=== PATIENT | female | born 1940 | race Caucasian/White ===

== ENCOUNTER 2016-10-27 10:53 | Inpatient (IN) | payer MEDICARE ==
[~2016-10-27] VITALS: Ht 167.6 cm; Wt 95.3 kg
[2016-10-27] MEDS ORDERED: MULTI VITAMINS1 TAB PO (14:48)
[2016-10-27] MEDS ORDERED: ASPIRIN 32325 MG/TAB PO (14:48)
[2016-10-27] MEDS ORDERED: PLAVIX 75MG TAB75 MG PO (14:49)
[2016-10-27] MEDS ORDERED: CATAPRES 0.1MG0.1 MG PO (14:49)
[2016-10-27] MEDS ORDERED: CARDIZEM CD360 MG PO (14:50)
[2016-10-27] MEDS ORDERED: MOTRIN 400400 MG/TAB PO (14:50)
[2016-10-27] MEDS ORDERED: COZAAR100 MG PO (14:51)
[2016-10-27] MEDS ORDERED: GLUCOPHAGE500 MG/TAB PO (14:52)
[2016-10-27] MEDS ORDERED: LOPRESSOR100 MG PO (14:52)
[2016-10-27] MEDS ORDERED: MIRALAX PA17 GM/Dose PO (14:53)
[2016-10-27] MEDS ORDERED: PHENERGAN25 MG RC (14:53)
[2016-10-27] MEDS ORDERED: K-DUR 10 MEQ T10 MEQ PO (14:54)
[2016-10-27] MEDS ORDERED: SENNA-LAX8.6 MG PO (14:55)
[2016-10-27] MEDS ORDERED: REFRESH TEARS 330 ML OP (14:55)
[2016-10-27] MEDS ORDERED: ULTRAM 50MG TAB50 MG PO (14:57)
[2016-10-27] MEDS ORDERED: ZOCOR 20MG20 MG PO (14:57)
[2016-10-27] MEDS ORDERED: ZITHROMAX 250M250 MG PO (14:58)
[2016-10-27 15:45] VITALS: BP 134/73; PULSE 61; TEMP 98.4
[2016-10-27 15:52] VITALS: BP 134/73; PULSE 61; TEMP 98.4
[2016-10-27 16:52] VITALS: BP 134/73; PULSE 61; TEMP 98.4
[2016-10-28 05:09] VITALS: BP 136/73; PULSE 63; TEMP 96.8
[2016-10-28 16:26] VITALS: BP 164/79; PULSE 74; TEMP 98.4
[2016-10-28 21:30] VITALS: BP 120/62; PULSE 59
[2016-10-29 05:26] VITALS: BP 134/79; PULSE 66; TEMP 97.1
[2016-10-29 06:04] LABS: CALCIUM 9.2 mg/dL (8.4-10.2); CREATININE, serum 0.6 mg/dL (0.52-1.25); MAGNESIUM 1.5 mg/dL (1.6-2.3); POTASSIUM 3.1 mmol/L (3.4-5.0)
[2016-10-29 17:43] VITALS: BP 134/58; PULSE 55; TEMP 98
[2016-10-29 18:06] LABS: PH 6 (5-8); SQUAMOUS EPITHELIAL 0-2 /hpf; URINE APPEARANCE Cloudy; URINE BACTERIA Many /hpf; URINE BILIRUBIN Negative (NEGATIVE); URINE BLOOD 1+ (NEGATIVE); URINE COLOR Yellow; URINE GLUCOSE Negative (NEGATIVE); URINE KETONE Negative (NEGATIVE); URINE UROBILINOGEN Negative (NEGATIVE); URINE WBC >50 /hpf
[2016-10-30 05:40] VITALS: BP 136/82; PULSE 67; TEMP 97.3
[2016-10-30 17:37] VITALS: BP 146/67; PULSE 66; TEMP 98.1
[2016-10-31 06:00] VITALS: BP 124/51; PULSE 58; PULSE 82; TEMP 97.3
[2016-10-31 17:08] VITALS: BP 165/98; PULSE 71; TEMP 98.3
[2016-10-31 19:14] LABS: CALCIUM 9.6 mg/dL (8.4-10.2); CREATININE, serum 0.7 mg/dL (0.52-1.25); POTASSIUM 3.9 mmol/L (3.4-5.0)
[2016-11-01 05:07] VITALS: BP 138/76; PULSE 68; TEMP 98.2
[2016-11-01 17:55] VITALS: BP 168/96; PULSE 74; TEMP 97.8
[2016-11-02 05:08] VITALS: BP 143/83; PULSE 63; TEMP 97.9
[2016-11-02 17:38] VITALS: BP 152/85; PULSE 67; TEMP 97.8
[2016-11-03 04:01] VITALS: BP 137/78; PULSE 112; TEMP 97.9
[2016-11-03 07:28] LABS: CALCIUM 9.2 mg/dL (8.4-10.2); CREATININE, serum 0.65 mg/dL (0.52-1.25); MAGNESIUM 1.8 mg/dL (1.6-2.3); POTASSIUM 3.5 mmol/L (3.4-5.0)
[2016-11-03 16:29] VITALS: BP 125/66; PULSE 53; TEMP 98.7
[2016-11-04 04:15] VITALS: BP 135/78; PULSE 73; TEMP 97.7
[2016-11-05 05:37] VITALS: BP 145/80; PULSE 59; TEMP 97.6
[2016-11-05 16:28] VITALS: BP 132/65; PULSE 60; TEMP 98.5
[2016-11-06 04:41] VITALS: BP 151/56; PULSE 65; TEMP 98.2
[2016-11-06 16:09] VITALS: BP 144/82; PULSE 60; TEMP 97.5
[2016-11-07 04:28] VITALS: BP 133/77; PULSE 62; TEMP 97.8
[2016-11-07 16:14] VITALS: BP 143/90; PULSE 66; TEMP 97.4
[2016-11-08 04:00] VITALS: BP 143/86; PULSE 57; TEMP 98.2
[2016-11-08 17:07] VITALS: BP 136/63; PULSE 79; TEMP 97.5
[2016-11-09 05:48] VITALS: BP 138/85; PULSE 63; TEMP 97.7
[2016-11-09 18:00] VITALS: BP 123/86; PULSE 65; TEMP 98.3
[2016-11-10 04:12] VITALS: BP 144/72; PULSE 87; TEMP 98.5
[2016-11-10 17:02] VITALS: BP 150/79; PULSE 69; TEMP 98
[2016-11-11 06:09] VITALS: BP 132/64; PULSE 61; TEMP 97.6
[2016-11-11 17:48] VITALS: BP 132/64; PULSE 72; TEMP 97.5
[2016-11-12 05:47] VITALS: BP 142/75; PULSE 60; TEMP 98
[2016-11-12 06:37] LABS: CALCIUM 9.9 mg/dL (8.4-10.2); CREATININE, serum 0.73 mg/dL (0.52-1.25); MAGNESIUM 1.9 mg/dL (1.6-2.3); POTASSIUM 4.1 mmol/L (3.4-5.0)
[2016-11-12 16:52] VITALS: BP 149/84; PULSE 62; TEMP 98.2
[2016-11-13 04:42] VITALS: BP 119/70; PULSE 70; TEMP 97.7
[2016-11-13 16:07] VITALS: BP 134/69; PULSE 55; TEMP 97.5
[2016-11-14 04:44] VITALS: BP 133/85; PULSE 65; TEMP 98
[2016-11-14 16:02] VITALS: BP 135/65; PULSE 63; TEMP 98.3
[2016-11-15 03:59] VITALS: BP 137/88; PULSE 69; TEMP 98.6
[2016-11-15 09:00] VITALS: BP 125/56; PULSE 54
[2016-11-15 15:49] VITALS: BP 133/60; PULSE 53; TEMP 97.8
[2016-11-16 05:46] VITALS: BP 133/75; PULSE 64; TEMP 97.7
[2016-11-16 18:09] VITALS: BP 132/75; PULSE 88; TEMP 98.2
[2016-11-17 05:53] VITALS: BP 117/66; PULSE 42; TEMP 97.7
[2016-11-17 07:30] VITALS: BP 140/72; PULSE 67; TEMP 98.3
[2016-11-17 16:18] VITALS: BP 130/60; PULSE 64; TEMP 98.1
[2016-11-17 21:30] VITALS: BP 124/63; PULSE 62; TEMP 99.5
[2016-11-18 04:56] VITALS: BP 131/68; PULSE 56; TEMP 98.6
[2016-11-18 16:00] VITALS: BP 135/72; PULSE 69; TEMP 97
[2016-11-19 06:48] VITALS: BP 145/81; PULSE 64; TEMP 97.9
[2016-11-19 18:36] VITALS: BP 144/72; PULSE 56; TEMP 98
[2016-11-20 06:13] VITALS: BP 134/68; PULSE 55; TEMP 98.2
[2016-11-20] MEDS ORDERED: XARELTO20 MG PO (08:33)
[2016-11-20] MEDS ORDERED: DIFLUCAN200 MG PO (08:33)
[2016-11-20] MEDS ORDERED: TYLENOL 325MG325 MG PO (08:34)
[2016-11-20] MEDS ORDERED: K-TAB20 PO (08:35)
[2016-11-20] MEDS ORDERED: NOVOLOG 100U100 U/M1 SQ (08:36)
[2016-11-20] MEDS ORDERED: NYSTATIN POWDER30 GM TOP (08:36)
[2016-11-20] MEDS ORDERED: MAG-OX 400400 MG/TAB PO (08:36)
[2016-11-20] MEDS ORDERED: ULTRAM 50MG TAB50 MG PO (08:37)
== END 2016-11-20 13:30 | DRG 57 ==
PROVIDERS: Internal Medicine; Internal Medicine Cardiovascular Disease
DX: I69.354 Hemiplegia and hemiparesis following cerebral infarction affecting left non-dominant side (principal); N39.0 Urinary tract infection, site not specified; I69.391 Dysphagia following cerebral infarction; R13.10 Dysphagia, unspecified; I48.91 Unspecified atrial fibrillation; I10 Essential (primary) hypertension; E11.9 Type 2 diabetes mellitus without complications; I25.10 Atherosclerotic heart disease of native coronary artery without angina pectoris; E87.6 Hypokalemia; G89.29 Other chronic pain; M54.9 Dorsalgia, unspecified; B96.20 Unspecified Escherichia coli [E. coli] as the cause of diseases classified elsewhere
CPT/HCPCS: 99223-AI; 99232-AI; 99233-AI; 99239; J0696; J1650

== ENCOUNTER 2017-05-22 06:58 | Outpatient (CLI) | payer MEDICARE, MEDICAID ==
[2017-05-22] VITALS (8 sets, daily range): BP systolic 140–163; BP diastolic 84–106; PULSE 66–86; TEMP 97.4
[~2017-05-22] VITALS: Ht 167.7 cm; Wt 99.0 kg
[~2017-05-22 06:58] MED LIST: ASPIRIN 32325 MG/TAB PO; CARDIZEM CD360 MG PO; CATAPRES 0.1MG0.1 MG PO; COZAAR100 MG PO; DIFLUCAN200 MG PO; GLUCOPHAGE500 MG/TAB PO; K-DUR 10 MEQ T10 MEQ PO; K-TAB20 PO; LOPRESSOR100 MG PO; MAG-OX 400400 MG/TAB PO; MIRALAX PA17 GM/Dose PO; MOTRIN 400400 MG/TAB PO; MULTI VITAMINS1 TAB PO; NOVOLOG 100U100 U/M1 SQ; NYSTATIN POWDER30 GM TOP; PHENERGAN25 MG RC; PLAVIX 75MG TAB75 MG PO; REFRESH TEARS 330 ML OP; SENNA-LAX8.6 MG PO; TYLENOL 325MG325 MG PO; ULTRAM 50MG TAB50 MG PO; XARELTO20 MG PO; ZITHROMAX 250M250 MG PO; ZOCOR 20MG20 MG PO
[2017-05-22 08:18] LABS: POTASSIUM 3.8 mmol/L (3.4-5.0)
[2017-05-22 08:19] LABS: INR 1.9 (0.8-3.0); PROTHROMBIN TIME 22.2 SECONDS (9.7-12.8)
[2017-05-22] MEDS ORDERED: ASPIRIN E.C. 8181 MG PO (08:28)
[2017-05-22] MEDS ORDERED: GENTLE LAXATIVE10 MG RC (08:29)
[2017-05-22] MEDS ORDERED: NEURONTIN100 MG/CAP PO (08:32)
[2017-05-22] MEDS ORDERED: IMODIUM 2MG CAPS2 MG PO (08:48)
[2017-05-22] MEDS ORDERED: K-DUR20 MEQ PO (08:49)
[2017-05-22] MEDS ORDERED: LEXAPRO 10MG10 MG PO (08:51)
[2017-05-22] MEDS ORDERED: MAG-OX 400400 MG/TAB PO (08:52)
[2017-05-22] MEDS ORDERED: MELATONIN1 MG PO (08:52)
[2017-05-22 08:53] LABS: THYROID STIMULATING HORMONE 2.81 uIU/mL (0.465-4.680)
[2017-05-22] MEDS ORDERED: GOOD NEIGH1200 MG/15 PO (08:54)
[2017-05-22] MEDS ORDERED: ULTRAM 50MG TAB50 MG PO (08:58)
[2017-05-22] MEDS ORDERED: TYLENOL 325MG325 MG PO ×2 (08:59→09:00)
[2017-05-22] MEDS ORDERED: VOLTAREN GEL 1%1 TU TP (09:01)
[2017-05-22] MEDS ORDERED: XARELTO20 MG PO (09:02)
== END 2017-05-22 13:35 | disposition home or self-care (01) ==
LOC: COL.RAD 06:58
PROVIDERS: Internal Medicine Interventional Cardiology
DX: I48.1 Persistent atrial fibrillation (principal); Z86.73 Personal history of transient ischemic attack (TIA), and cerebral infarction without residual deficits
CPT/HCPCS: G9654; J0282; J0330; J2704; J7030

== ENCOUNTER 2017-05-22 20:00 | Emergency (ER) | payer MEDICARE, MEDICAID ==
[~2017-05-22] VITALS: Ht 170.2 cm; Wt 84.1 kg
[~2017-05-22 20:00] MED LIST changes: +ASPIRIN E.C. 8181 MG PO; +GENTLE LAXATIVE10 MG RC; +GOOD NEIGH1200 MG/15 PO; +IMODIUM 2MG CAPS2 MG PO; +K-DUR20 MEQ PO; +LEXAPRO 10MG10 MG PO; +MELATONIN1 MG PO; +NEURONTIN100 MG/CAP PO; +VOLTAREN GEL 1%1 TU TP
[2017-05-22 20:13] VITALS: TEMP 96.8
[2017-05-22 20:20] LABS: BASO # 0.1 (0.0-0.2); EOS # 0.2 (0.0-0.7); EOS % 3.3 % (0-4.0); GRAN # 4.2 (1.4-6.5); GRAN % 60.9 % (42.2-75.2); HEMATOCRIT 45.2 % (37.0-47.0); HEMOGLOBIN 14.8 g/dl (12.5-16.0); LYMPH # 1.5 (1.2-3.4); LYMPH % 22.1 % (20.0-51.0); MEAN CELL VOLUME 89 fl (80.0-100.0); MEAN CORPUSCULAR HEMOGLOBIN 29 pg (27.0-31.0); MEAN CORPUSCULAR HGB CONC 33 g/dl (33.0-37.0); MEAN PLATELET VOLUME 9.4 fl (7.4-10.4); MONO # 0.9 (0.1-0.6); MONO % 12.6 % (1.7-9.3); PLATELET COUNT 338 K/mm3 (130-400); REDCELL DISTRIBUTION WIDTH-CV 13.5 % (11.5-14.5)
[2017-05-22 20:27] LABS: ALANINE AMINOTRANSFERASE 29 U/L (9-52); ALKALINE PHOSPHATASE 76 U/L (50-136); ANION GAP 11 mmol/L (7-16); AST,SGOT 35 U/L (15-37); BILIRUBIN,TOTAL 0.6 mg/dL (0.0-1.0); BLOOD UREA NITROGEN 19 mg/dL (7-17); CALCIUM 9.4 mg/dL (8.4-10.2); CARBON DIOXIDE 26 mmol/L (22-30); CHLORIDE 102 mmol/L (98-107); CREATININE, serum 1.04 mg/dL (0.52-1.25); GLUCOSE 139 mg/dL (74-106); POTASSIUM 3.9 mmol/L (3.4-5.0); SODIUM 138 mmol/L (137-145); TOTAL PROTEIN 7.6 gm/dL (6.4-8.2)
[2017-05-22 20:40] LABS: TROPONIN-I < 0.012 ng/mL (0.000-0.034)
[2017-05-22 23:18] VITALS: BP 155/95; PULSE 85
== END 2017-05-22 23:21 | disposition home or self-care (01) ==
LOC: COL.ER 20:00
PROVIDERS: Emergency Medicine
DX: L30.9 Dermatitis, unspecified (principal); R07.89 Other chest pain; E11.9 Type 2 diabetes mellitus without complications; I48.91 Unspecified atrial fibrillation; Z86.73 Personal history of transient ischemic attack (TIA), and cerebral infarction without residual deficits; Z98.890 Other specified postprocedural states; Z79.84 Long term (current) use of oral hypoglycemic drugs; Z79.82 Long term (current) use of aspirin

== ENCOUNTER 2017-08-08 16:56 | Inpatient (IN) | payer MEDICARE, MEDICAID ==
[~2017-08-08] VITALS: Ht 167.6 cm; Wt 102.9 kg
[~2017-08-08 16:56] MED LIST changes: -ALMACONE 360 M360 ML PO; -CEPHALEXIN250 M1 PO; -TYLENOL SU650 MG/SUP RC
[2017-08-08 18:24] LABS: BASO # 0.1 (0.0-0.2); BASO % 0.8 % (0.0-2.0); EOS # 0.1 (0.0-0.7); EOS % 1.7 % (0-4.0); GRAN # 5.7 (1.4-6.5); GRAN % 68.5 % (42.2-75.2); HEMATOCRIT 41.5 % (37.0-47.0); HEMOGLOBIN 13.2 g/dl (12.5-16.0); LYMPH # 1.3 (1.2-3.4); LYMPH % 15.1 % (20.0-51.0); MEAN CELL VOLUME 90 fl (80.0-100.0); MEAN CORPUSCULAR HEMOGLOBIN 29 pg (27.0-31.0); MEAN CORPUSCULAR HGB CONC 32 g/dl (33.0-37.0); MEAN PLATELET VOLUME 9.1 fl (7.4-10.4); MONO # 1.1 (0.1-0.6); MONO % 13.7 % (1.7-9.3); PLATELET COUNT 327 K/mm3 (130-400); RED BLOOD COUNT 4.59 M/mm3 (4.10-5.30); REDCELL DISTRIBUTION WIDTH-CV 13.9 % (11.5-14.5)
[2017-08-08 18:34] LABS: ALBUMIN 3.5 gm/dL (3.5-5.0); BILIRUBIN,TOTAL 0.7 mg/dL (0.0-1.0); CALCIUM 9.2 mg/dL (8.4-10.2); CREATININE, serum 0.88 mg/dL (0.52-1.25); POTASSIUM 4.2 mmol/L (3.4-5.0); TOTAL PROTEIN 7.3 gm/dL (6.4-8.2)
[2017-08-08 21:57] LABS: INR 1.2 (0.8-3.0)
[2017-08-08] MEDS ORDERED: CEPHALEXIN250 M1 PO (21:59)
[2017-08-08 22:00] LABS: PARTIAL THROMBOPLASTIN TIME 36.4 SECONDS (26.0-37.0)
[2017-08-09 01:05] VITALS: BP 140/66; PULSE 82; TEMP 98.6
[2017-08-09] MEDS ORDERED: VOLTAREN GEL 1%1 TU TP (01:44)
[2017-08-09] MEDS ORDERED: TYLENOL SU650 MG/SUP RC (01:46)
[2017-08-09] MEDS ORDERED: ALMACONE 360 M360 ML PO (04:01)
[2017-08-09 04:19] VITALS: BP 150/81; PULSE 74; TEMP 98.3
[2017-08-09 07:05] LABS: BASO # 0.1 (0.0-0.2); EOS # 0.2 (0.0-0.7); EOS % 2.6 % (0-4.0); GRAN # 4.7 (1.4-6.5); GRAN % 68.2 % (42.2-75.2); HEMATOCRIT 37.4 % (37.0-47.0); HEMOGLOBIN 12.1 g/dl (12.5-16.0); LYMPH # 1.1 (1.2-3.4); LYMPH % 15.6 % (20.0-51.0); MEAN CELL VOLUME 91 fl (80.0-100.0); MEAN CORPUSCULAR HEMOGLOBIN 29 pg (27.0-31.0); MEAN CORPUSCULAR HGB CONC 32 g/dl (33.0-37.0); MONO # 0.8 (0.1-0.6); MONO % 12.3 % (1.7-9.3); PLATELET COUNT 342 K/mm3 (130-400); RED BLOOD COUNT 4.11 M/mm3 (4.10-5.30)
[2017-08-09 07:15] LABS: CALCIUM 8.7 mg/dL (8.4-10.2); CREATININE, serum 0.69 mg/dL (0.52-1.25); POTASSIUM 3.4 mmol/L (3.4-5.0)
[2017-08-09 08:14] VITALS: BP 150/80; PULSE 87; TEMP 98.6
[2017-08-09 11:43] VITALS: BP 129/73; PULSE 76; TEMP 97.7
[2017-08-09 16:15] VITALS: BP 130/70; PULSE 66; TEMP 98.3
[2017-08-09 20:48] VITALS: BP 107/69; PULSE 94; TEMP 98.3
[2017-08-10 00:03] VITALS: BP 140/88; PULSE 81; TEMP 98.4
[2017-08-10 03:53] VITALS: BP 137/78; PULSE 74; TEMP 98.1
[2017-08-10 07:38] VITALS: BP 146/87; PULSE 80; TEMP 97.8
[2017-08-10 11:43] VITALS: BP 133/69; PULSE 73; TEMP 97.7
[2017-08-10 15:31] VITALS: BP 132/74; PULSE 68; TEMP 98.7
[2017-08-10 19:41] VITALS: BP 138/95; PULSE 82; TEMP 97.9
[2017-08-11 01:01] VITALS: BP 123/76; PULSE 41; PULSE 66; TEMP 97.5
[2017-08-11 03:47] VITALS: BP 141/75; PULSE 70; TEMP 97.6
[2017-08-11 06:52] LABS: BASO # 0.1 (0.0-0.2); BASO % 0.7 % (0.0-2.0); EOS # 0.3 (0.0-0.7); EOS % 4.2 % (0-4.0); GRAN # 4.4 (1.4-6.5); GRAN % 65.3 % (42.2-75.2); HEMATOCRIT 38.7 % (37.0-47.0); HEMOGLOBIN 12.3 g/dl (12.5-16.0); LYMPH # 1.2 (1.2-3.4); LYMPH % 18.4 % (20.0-51.0); MEAN CELL VOLUME 91 fl (80.0-100.0); MEAN CORPUSCULAR HEMOGLOBIN 29 pg (27.0-31.0); MEAN CORPUSCULAR HGB CONC 32 g/dl (33.0-37.0); MEAN PLATELET VOLUME 9.4 fl (7.4-10.4); MONO # 0.8 (0.1-0.6); MONO % 11.1 % (1.7-9.3); PLATELET COUNT 365 K/mm3 (130-400); RED BLOOD COUNT 4.26 M/mm3 (4.10-5.30); REDCELL DISTRIBUTION WIDTH-CV 13.8 % (11.5-14.5)
[2017-08-11 07:07] LABS: CALCIUM 8.8 mg/dL (8.4-10.2); CREATININE, serum 0.62 mg/dL (0.52-1.25); POTASSIUM 3.1 mmol/L (3.4-5.0)
[2017-08-11 07:39] VITALS: BP 154/89; PULSE 66; TEMP 98
[2017-08-11] MEDS ORDERED: K-TAB20 PO (09:54)
[2017-08-11] MEDS ORDERED: ULTRAM 50MG TAB50 MG PO (09:56)
[2017-08-11 10:21] VITALS: BP 154/89; PULSE 66; TEMP 98
== END 2017-08-11 11:33 | DRG 605 ==
LOC: COL.ER 16:56 → SURG 23:48
PROVIDERS: Emergency Medicine; Internal Medicine; Nurse Practitioner Family
DX: S80.12XA Contusion of left lower leg, initial encounter (principal); I25.10 Atherosclerotic heart disease of native coronary artery without angina pectoris; I10 Essential (primary) hypertension; I48.2 Chronic atrial fibrillation; Z79.01 Long term (current) use of anticoagulants; E11.9 Type 2 diabetes mellitus without complications; I69.320 Aphasia following cerebral infarction; E87.6 Hypokalemia; W21.89XA Striking against or struck by other sports equipment, initial encounter
CPT/HCPCS: 99223-AI; 99233-AI; 99239; G0378; G8978-GP; G8979-GP; J0690; J1815; J2543; J3370; J7030; J7050

== ENCOUNTER → 2017-08-08 | Outpatient (REF) ==
[~2017-08-08] MED LIST changes: +ALMACONE 360 M360 ML PO; +CEPHALEXIN250 M1 PO; +TYLENOL SU650 MG/SUP RC
[2017-08-08 16:01] LABS: CALCIUM 9.3 mg/dL (8.4-10.2); CREATININE, serum 0.88 mg/dL (0.52-1.25); POTASSIUM 4.3 mmol/L (3.4-5.0)
== END ==
LOC: ZCOL.LAB 15:44
PROVIDERS: Nurse Practitioner Family
DX: E11.59 Type 2 diabetes mellitus with other circulatory complications (principal); I48.0 Paroxysmal atrial fibrillation

== ENCOUNTER → 2018-01-04 | Outpatient (CLI) | payer MEDICARE, MEDICAID ==
[~2018-01-04] MED LIST changes: +ALMACONE 360 M360 ML PO; +CEPHALEXIN250 M1 PO; +TYLENOL SU650 MG/SUP RC
== END ==
LOC: COL.RAD 07:52
DX: I63.411 Cerebral infarction due to embolism of right middle cerebral artery (principal); I67.82 Cerebral ischemia; G51.4 Facial myokymia; Z86.73 Personal history of transient ischemic attack (TIA), and cerebral infarction without residual deficits

== ENCOUNTER → 2018-05-14 | Outpatient (CLI) | payer MEDICARE, MEDICAID | LOC: COL.RAD 07:49 | DX: K76.89 Other specified diseases of liver (principal); K86.2 Cyst of pancreas; N83.202 Unspecified ovarian cyst, left side; N83.201 Unspecified ovarian cyst, right side; N28.1 Cyst of kidney, acquired | CPT/HCPCS: Q9967 ==

== ENCOUNTER → 2018-05-28 | Outpatient (CLI) | payer MEDICARE, MEDICAID ==
[2018-05-28 16:55] LABS: CALCIUM 9.1 mg/dL (8.4-10.2); CREATININE, serum 0.81 mg/dL (0.52-1.25); POTASSIUM 4.2 mmol/L (3.4-5.0)
== END ==
LOC: ZCOL.LAB 16:06
PROVIDERS: Internal Medicine
DX: I10 Essential (primary) hypertension (principal)

== ENCOUNTER → 2018-06-23 | Outpatient (CLI) | payer MEDICARE, MEDICAID ==
[2018-06-23 17:37] LABS: BASO % 0.3 % (0.0-2.0); EOS # 0.1 (0.0-0.7); EOS % 0.9 % (0-4.0); GRAN # 8.2 (1.4-6.5); GRAN % 92.4 % (42.2-75.2); HEMATOCRIT 47.8 % (37.0-47.0); HEMOGLOBIN 15.4 g/dl (12.5-16.0); LYMPH # 0.3 (1.2-3.4); LYMPH % 3.3 % (20.0-51.0); MEAN CELL VOLUME 88 fl (80.0-100.0); MEAN CORPUSCULAR HEMOGLOBIN 29 pg (27.0-31.0); MEAN CORPUSCULAR HGB CONC 32 g/dl (33.0-37.0); MEAN PLATELET VOLUME 9.7 fl (7.4-10.4); MONO # 0.3 (0.1-0.6); MONO % 2.9 % (1.7-9.3); PLATELET COUNT 313 K/mm3 (130-400); RED BLOOD COUNT 5.41 M/mm3 (4.10-5.30); REDCELL DISTRIBUTION WIDTH-CV 14.3 % (11.5-14.5)
[2018-06-23 18:21] LABS: ALBUMIN 3.6 gm/dL (3.5-5.0); BILIRUBIN,TOTAL 0.6 mg/dL (0.0-1.0); CALCIUM 8.9 mg/dL (8.4-10.2); CREATININE, serum 0.75 (0.52-1.25); POTASSIUM 4.1 mmol/L (3.4-5.0); TOTAL PROTEIN 6.8 gm/dL (6.4-8.2)
== END ==
LOC: ZCOL.LAB 16:45
PROVIDERS: Internal Medicine
DX: Z01.89 Encounter for other specified special examinations (principal)

== ENCOUNTER → 2019-03-27 | Outpatient (CLI) | payer MEDICARE, MEDICAID ==
[2019-03-27 18:59] LABS: COLLECTION METHOD CLEAN CATCH
[2019-03-27 19:56] LABS: MUCOUS Present /lpf; PH 6 (5-8); SQUAMOUS EPITHELIAL 0-2 /hpf; URINE APPEARANCE Cloudy; URINE BACTERIA Rare /hpf; URINE BILIRUBIN Negative (NEGATIVE); URINE BLOOD 3+ (NEGATIVE); URINE COLOR Yellow; URINE GLUCOSE Negative (NEGATIVE); URINE KETONE Negative (NEGATIVE); URINE LEUKOCYTE ESTERASE 3+ (NEGATIVE); URINE NITRATE Positive (NEGATIVE); URINE PROTEIN(semi-quant) 1+ (NEGATIVE); URINE RBC >50 /hpf; URINE UROBILINOGEN Negative (NEGATIVE); URINE WBC >50 /hpf
== END ==
LOC: ZCOL.LAB 18:04
PROVIDERS: Family Medicine
DX: R30.0 Dysuria (principal); R31.9 Hematuria, unspecified

== ENCOUNTER → 2019-04-04 | Outpatient (CLI) | payer MEDICARE, MEDICAID | LOC: COL.RAD 09:35 | DX: N20.0 Calculus of kidney (principal); N28.1 Cyst of kidney, acquired ==

== ENCOUNTER → 2019-04-06 | Outpatient (CLI) | payer MEDICARE, MEDICAID ==
[2019-04-06 13:03] LABS: COLLECTION METHOD CLEAN CATCH
[2019-04-06 13:24] LABS: BUDDING YEAST Present /hpf; MUCOUS Present /lpf; PH 6 (5-8); SQUAMOUS EPITHELIAL 0-2 /hpf; URINE APPEARANCE Cloudy; URINE BACTERIA Occasional /hpf; URINE BILIRUBIN Negative (NEGATIVE); URINE BLOOD 3+ (NEGATIVE); URINE COLOR Yellow; URINE GLUCOSE Negative (NEGATIVE); URINE KETONE Negative (NEGATIVE); URINE LEUKOCYTE ESTERASE 2+ (NEGATIVE); URINE NITRATE Positive (NEGATIVE); URINE PROTEIN(semi-quant) 2+ (NEGATIVE); URINE RBC >50 /hpf; URINE UROBILINOGEN Negative (NEGATIVE); URINE WBC >50 /hpf
== END ==
LOC: ZCOL.LAB 12:50
PROVIDERS: Internal Medicine
DX: R31.9 Hematuria, unspecified (principal); R35.0 Frequency of micturition

== ENCOUNTER 2019-04-29 08:08 | Day surgery (SDC) | payer MEDICARE, MEDICAID ==
[~2019-04-29] VITALS: Ht 167.6 cm; Wt 107.7 kg
[2019-04-29 09:02] VITALS: BP 141/77; PULSE 70; TEMP 98.1
[2019-04-29 09:06] LABS: CALCIUM 9.3 mg/dL (8.4-10.2); CREATININE, serum 0.75 (0.52-1.25); POTASSIUM 3.9 mmol/L (3.4-5.0)
[2019-04-29] MEDS ORDERED: BYSTOLIC5 MG PO (09:13)
[2019-04-29] MEDS ORDERED: CARDIZEM CD 18180 MG PO (09:15)
[2019-04-29] MEDS ORDERED: LASIX 20MG TABL20 MG PO (09:17)
[2019-04-29] MEDS ORDERED: METAMUCIL3.4 GM/DOS PO (09:18)
[2019-04-29] MEDS ORDERED: ULTRAM 50MG TAB50 MG PO (09:20)
[2019-04-29] MEDS ORDERED: UROCIT-K 1010 MEQ PO (09:22)
[2019-04-29] MEDS ORDERED: SYSTANE 0.4%-0.1 SOL OP (09:24)
[2019-04-29] MEDS ORDERED: ARTIFICIAL TEAR15 M7 OD (09:26)
[2019-04-29 12:03] VITALS: BP 136/82; PULSE 72; TEMP 97.3
--- NOTE | 2019-04-29 12:03 | NUR ---
The patient arrived back to [place] [facility] from the recovery room at this time. The patient appears alert and back to her pre op mentation. The patient reports soreness in her right flank area. Post operative vital signs were started at this timme. The patient's daughter was brought back to be at her bedside. The patient agrees to try some cranberry juice and wheat toast. Will continue to monitor the patient.
[2019-04-29 12:18] VITALS: BP 140/91; PULSE 86
--- NOTE | 2019-04-29 12:18 | NUR ---
The patient appears to be tolerating the food and drink well. Vital signs appear stable. Will continue to monitor the patient.
[2019-04-29 12:40] VITALS: BP 151/100; PULSE 79
--- NOTE | 2019-04-29 12:40 | NUR ---
The patient has finished her toast and appeared to tolerate it well. The patient continues to report increased discomfort in her right flank area and was given a PRN dose of Berry one tab at this time.
--- NOTE | 2019-04-29 13:20 | NUR ---
Discharge instructions were reviewed with the patient and her daughter at this time. The daughter verbalized understanding and have no questions for the nurse at this time. The patient's IV to her left hand was removed and a pressure dressing was applied to the site. The patient was assisted to the bathroom with the use of her wheelchair and she appeared to tolerate the activity well. The patient voided without difficulty and was assisted to get dressed and then back to her wheelchair.
--- NOTE | 2019-04-29 13:25 | NUR ---
The nurse attempted to call report to [facility] where the patient is a resident. No one was able to be reached and a message with a callback number was left.
--- NOTE | 2019-04-29 13:35 | NUR ---
The patient was escorted out via wheelchair to a private vehicle by SHEMAR Overton. The patient's belongings and discharge paperwork were sent with her. The patient's daughter is going to wait with the patient for the transportation vehicle from [facility] to arrive.
== END 2019-04-29 13:35 ==
LOC: SDCO 08:08
PROVIDERS: Nurse Anesthetist, Certified Registered
DX: N20.0 Calculus of kidney (principal); I48.91 Unspecified atrial fibrillation; Z79.01 Long term (current) use of anticoagulants; Z79.899 Other long term (current) drug therapy; Z79.82 Long term (current) use of aspirin; I25.10 Atherosclerotic heart disease of native coronary artery without angina pectoris; I10 Essential (primary) hypertension; I69.321 Dysphasia following cerebral infarction; I69.310 Attention and concentration deficit following cerebral infarction; I69.391 Dysphagia following cerebral infarction; I69.320 Aphasia following cerebral infarction; I69.398 Other sequelae of cerebral infarction; E11.9 Type 2 diabetes mellitus without complications; Z79.84 Long term (current) use of oral hypoglycemic drugs; Z87.891 Personal history of nicotine dependence; E78.5 Hyperlipidemia, unspecified; E87.6 Hypokalemia
CPT/HCPCS: C1769; C2617; J0690; J2405; J2704; J3010; J7030

== ENCOUNTER → 2019-07-20 | Outpatient (CLI) | payer MEDICARE, MEDICAID ==
[~2019-07-20] MED LIST changes: +ARTIFICIAL TEAR15 M7 OD; +BYSTOLIC5 MG PO; +CARDIZEM CD 18180 MG PO; +LASIX 20MG TABL20 MG PO; +METAMUCIL3.4 GM/DOS PO; +SYSTANE 0.4%-0.1 SOL OP; +UROCIT-K 1010 MEQ PO
[2019-07-20 09:11] LABS: ALBUMIN 3.7 gm/dL (3.5-5.0); BILIRUBIN,TOTAL 0.5 mg/dL (0.0-1.0); CALCIUM 9.5 mg/dL (8.4-10.2); CREATININE, serum 0.59 (0.52-1.25); POTASSIUM 3.9 mmol/L (3.4-5.0); TOTAL PROTEIN 7.1 gm/dL (6.4-8.2)
[2019-07-20 09:16] LABS: BASO # 0.1 (0.0-0.2); BASO % 1.1 % (0.0-2.0); EOS # 0.3 (0.0-0.7); EOS % 4.3 % (0-4.0); GRAN # 4.6 (1.4-6.5); GRAN % 65.9 % (42.2-75.2); HEMATOCRIT 43.8 % (37.0-47.0); HEMOGLOBIN 13.8 g/dl (12.5-16.0); LYMPH # 1.4 (1.2-3.4); LYMPH % 19.6 % (20.0-51.0); MEAN CELL VOLUME 87 fl (80.0-100.0); MEAN CORPUSCULAR HEMOGLOBIN 27 pg (27.0-31.0); MEAN CORPUSCULAR HGB CONC 32 g/dl (33.0-37.0); MEAN PLATELET VOLUME 9.9 fl (7.4-10.4); MONO # 0.6 (0.1-0.6); MONO % 8.8 % (1.7-9.3); PLATELET COUNT 353 K/mm3 (130-400); RED BLOOD COUNT 5.03 M/mm3 (4.10-5.30); REDCELL DISTRIBUTION WIDTH-CV 14.5 % (11.5-14.5)
== END ==
LOC: ZCOL.LAB 08:52
PROVIDERS: Internal Medicine
DX: K64.1 Second degree hemorrhoids (principal); E11.59 Type 2 diabetes mellitus with other circulatory complications

== ENCOUNTER → 2019-09-10 | Outpatient (CLI) | payer MEDICARE, MEDICAID ==
[2019-09-10 13:10] LABS: COLLECTION METHOD CLEAN CATCH
[2019-09-10 13:21] LABS: MUCOUS Present /lpf; PH 5 (5-8); URINE APPEARANCE Cloudy; URINE BACTERIA Many /hpf; URINE BILIRUBIN Negative (NEGATIVE); URINE BLOOD 1+ (NEGATIVE); URINE CALCIUM OXALATE CRYSTAL Present /hpf; URINE COLOR Yellow; URINE GLUCOSE Negative (NEGATIVE); URINE KETONE Negative (NEGATIVE); URINE LEUKOCYTE ESTERASE 2+ (NEGATIVE); URINE NITRATE Positive (NEGATIVE); URINE PROTEIN(semi-quant) 1+ (NEGATIVE); URINE UROBILINOGEN Negative (NEGATIVE)
== END ==
LOC: ZCOL.LAB 10:11
PROVIDERS: Nurse Practitioner Family
DX: N39.0 Urinary tract infection, site not specified (principal)

== ENCOUNTER 2020-06-01 06:48 | Day surgery (SDC) | payer MEDICARE, MEDICAID ==
[~2020-06-01] VITALS: Ht 167.6 cm; Wt 103.9 kg
[2020-06-01] VITALS (7 sets, daily range): BP systolic 117–140; BP diastolic 68–89; PULSE 85–91; TEMP 97.5–98.5
[2020-06-01] MEDS ORDERED: CLARITIN 1010 MG/TAB PO (08:11)
[2020-06-01] MEDS ORDERED: BENADRYL25 M2 PO (08:11)
[2020-06-01] MEDS ORDERED: IMODIUM 2MG CAPS2 MG PO (08:14)
[2020-06-01] MEDS ORDERED: HCTZ 25MG TAB25 MG PO (08:14)
[2020-06-01] MEDS ORDERED: ALMACONE 360 M360 ML PO (08:17)
[2020-06-01] MEDS ORDERED: PROBIOTIC FORMU1 CAP PO (08:18)
[2020-06-01] MEDS ORDERED: FLOMAX 0.40.4 MG/CAP PO (08:19)
[2020-06-01] MEDS ORDERED: NORCO 325 MG-51 TAB PO (08:48)
--- NOTE | 2020-06-01 10:05 | NUR ---
Patient arrives to [facility] [facility] via cart, accompanied by SERVOMECHANISM DESIGNER Chanel. She is drowsy, but awake and appropriately speaks with daughter/staff. She denies any pain or nausea. IVF to TKO. Monitoring is applied - VSS and WNL on 2 L nasal cannula. Lights are dimmed for comfort. Patient is resting comfortably.
--- NOTE | 2020-06-01 10:15 | NUR ---
Patient continues to rest comfortably. Oxygen is titrated to off, on room air SpO2 measures 94%. Will continue to monitor.
--- NOTE | 2020-06-01 10:30 | NUR ---
VSS on room air. BP reading is identical to previous reading of 124/70. Patient is sitting up in bed. Nasal cannula is removed. Patient is drinking water without difficulty, tolerating PO well. She is able to do cough/deep breathing when asked.
--- NOTE | 2020-06-01 10:45 | NUR ---
Patient is more awake. She is sitting up in bed. She requests and receives coffee and applesauce. Her daughter is assisting her.
--- NOTE | 2020-06-01 11:45 | NUR ---
Patient states she needs to void. When going to assist patient to the restroom, it is noticed that she has already voided and the sheets of her bed are saturated. She states that she no longer needs to go. Staff assists her to get cleaned up and change to her clothing.
--- NOTE | 2020-06-01 11:56 | NUR ---
Patient has met discharge criteria. Discharge instructions are discussed. She and her daughter deny questions and verbalize understanding. PIV is removed with catheter intact and hemostasis achieved. Report is called to SHEMAR Troncoso at the alf. She denies any questions and arranges transportation to pick the patient up at 1230.
--- NOTE | 2020-06-01 12:14 | NUR ---
[facility] is going to call the office to arrange a follow-up appointment for stent removal on Thursday.
--- NOTE | 2020-06-01 12:24 | NUR ---
Patient is escorted to the exit via wheelchair by staff. She is discharged to the correction to the care of the correction transportation at 1224.
== END 2020-06-01 12:24 | disposition home or self-care (01) ==
LOC: SDCO 06:48
DX: N20.0 Calculus of kidney (principal); N39.0 Urinary tract infection, site not specified; I48.91 Unspecified atrial fibrillation; I10 Essential (primary) hypertension; E11.9 Type 2 diabetes mellitus without complications; E78.5 Hyperlipidemia, unspecified; E87.6 Hypokalemia; Z86.73 Personal history of transient ischemic attack (TIA), and cerebral infarction without residual deficits; Z96.653 Presence of artificial knee joint, bilateral; Z79.82 Long term (current) use of aspirin; Z79.899 Other long term (current) drug therapy; Z79.84 Long term (current) use of oral hypoglycemic drugs
CPT/HCPCS: C1769; C2617; J0690; J2405; J2704; J3010; J7120; Q9967

== ENCOUNTER → 2021-08-16 | Outpatient (CLI) | payer MEDICARE, MEDICAID ==
[~2021-08-16] MED LIST changes: +BENADRYL25 M2 PO; +CLARITIN 1010 MG/TAB PO; +FLOMAX 0.40.4 MG/CAP PO; +HCTZ 25MG TAB25 MG PO; +NORCO 325 MG-51 TAB PO; +PROBIOTIC FORMU1 CAP PO
== END ==
LOC: ZCOL.LAB 10:44
DX: J02.9 Acute pharyngitis, unspecified (principal); R05.9 Cough, unspecified; Z20.822 Contact with and (suspected) exposure to COVID-19

== ENCOUNTER 2021-10-19 02:33 | Emergency (ER) | payer MEDICARE, MEDICAID ==
[~2021-10-19] VITALS: Ht 167.6 cm; Wt 81.8 kg
[~2021-10-19 02:33] MED LIST changes: -PROBIOTIC FORMU1 CAP PO; +PROBIOTIC-MAJOR PO
[2021-10-19 02:45] VITALS: TEMP 98.5
[2021-10-19 03:09] LABS: BASO # 0.1 K/mm3 (0.0-0.2); BASO % 1.5 % (0.0-2.0); EOS # 0.3 K/mm3 (0.0-0.7); EOS % 4.9 % (0.0-4.0); GRAN # 3.2 K/mm3 (1.4-6.5); GRAN % 55.4 % (42.2-75.2); HEMATOCRIT 38.2 % (37.0-47.0); HEMOGLOBIN 11.9 g/dl (12.5-16.0); LYMPH # 1.5 K/mm3 (1.2-3.4); LYMPH % 25.9 % (20.0-51.0); MEAN CELL VOLUME 77 fl (80.0-100.0); MEAN CORPUSCULAR HEMOGLOBIN 24 pg (27-31); MEAN CORPUSCULAR HGB CONC 31 g/dl (33.0-37.0); MEAN PLATELET VOLUME 8.9 fl (7.4-10.4); MONO # 0.7 K/mm3 (0.1-0.6); MONO % 12.1 % (1.7-9.3); PLATELET COUNT 372 K/mm3 (130-400); RED BLOOD COUNT 4.95 M/mm3 (4.10-5.30); REDCELL DISTRIBUTION WIDTH-CV 17.2 % (11.5-14.5)
[2021-10-19 03:18] LABS: INR 2.3 (0.8-3.0); PROTHROMBIN TIME 26.4 SECONDS (9.7-12.8)
[2021-10-19 03:26] LABS: CALCIUM 9.4 mg/dL (8.4-10.2); CREATININE, serum 1.19 mg/dL (0.57-1.11); POTASSIUM 3.5 mmol/L (3.5-4.5)
[2021-10-19] MEDS ORDERED: DULCOLAX STOOL100 MG PO (03:39)
[2021-10-19 04:08] VITALS: BP 129/88; PULSE 73
== END 2021-10-19 04:08 | disposition home or self-care (01) ==
LOC: COL.ER 02:33
PROVIDERS: Emergency Medicine
DX: K64.4 Residual hemorrhoidal skin tags (principal); I48.91 Unspecified atrial fibrillation; R79.0 Abnormal level of blood mineral; Z79.01 Long term (current) use of anticoagulants

== ENCOUNTER 2021-10-21 13:25 | Inpatient (IN) | payer MEDICARE, MEDICAID ==
[~2021-10-21] VITALS: Ht 162.6 cm; Wt 97.2 kg
[~2021-10-21 13:25] MED LIST changes: -AMARYL1 MG PO; -AMOXICILLIN 8751 TAB PO; -B-121000 MCG PO; -METAMUCIL0.52 G1; -NATURAL IRON65 MG PO; -PROTONIX 40MG T40 MG PO; -REFRESH CELLUVI1 SOL OP; -REFRESH OPTIVE10 M2 OP
[2021-10-21 13:50] LABS: HEMOGLOBIN 11.1 g/dl (12.5-16.0); MEAN CELL VOLUME 77 fl (80.0-100.0); MEAN CORPUSCULAR HEMOGLOBIN 24 pg (27-31); MEAN CORPUSCULAR HGB CONC 32 g/dl (33.0-37.0); MEAN PLATELET VOLUME 9.3 fl (7.4-10.4); PLATELET COUNT 436 K/mm3 (130-400); RED BLOOD COUNT 4.59 M/mm3 (4.10-5.30)
[2021-10-21 13:51] LABS: HEMATOCRIT 35.2 % (37.0-47.0)
[2021-10-21 14:03] LABS: INR 1.5 (0.8-3.0); PROTHROMBIN TIME 17.7 SECONDS (9.7-12.8)
[2021-10-21 14:08] LABS: ALANINE AMINOTRANSFERASE 12 U/L (0-55); ALBUMIN 3.1 gm/dL (3.4-4.8); ALKALINE PHOSPHATASE 49 U/L (40-150); ANION GAP 13 mmol/L (7-16); AST,SGOT 12 U/L (5-34); BILIRUBIN,TOTAL 0.4 mg/dL (0.2-1.2); BLOOD UREA NITROGEN 46 mg/dL (10-20); CALCIUM 9.3 mg/dL (8.4-10.2); CARBON DIOXIDE 26 mmol/L (23-31); CHLORIDE 103 mmol/L (98-107); CREATININE, serum 1.17 mg/dL (0.57-1.11); GLUCOSE 215 mg/dL (70-99); LIPASE 20 U/L (8-78); POTASSIUM 3.7 mmol/L (3.5-4.5); SODIUM 142 mmol/L (136-145); TOTAL PROTEIN 7.1 gm/dL (6.2-8.1)
[2021-10-21 14:22] LABS: TROPONIN-I < 0.010 ng/mL (0.00-0.033)
[2021-10-21] MEDS ORDERED: B-121000 MCG PO (16:50)
[2021-10-21] MEDS ORDERED: AMARYL1 MG PO (16:50)
[2021-10-21] MEDS ORDERED: ULTRAM 50MG TAB50 MG PO (16:51)
[2021-10-21] MEDS ORDERED: TYLENOL 325MG325 MG PO (16:52)
[2021-10-21 16:53] VITALS: BP 114/79; PULSE 94; TEMP 98.9
[2021-10-21] MEDS ORDERED: METAMUCIL0.52 G1 (18:19)
[2021-10-21 18:23] VITALS: BP 105/87; PULSE 129; TEMP 98.5
[2021-10-21 18:24] LABS: HEMATOCRIT 31.9 % (37.0-47.0); HEMOGLOBIN 9.9 g/dl (12.5-16.0)
[2021-10-21] MEDS ORDERED: VOLTAREN GEL 1%1 TU TP (18:27)
[2021-10-21] MEDS ORDERED: REFRESH CELLUVI1 SOL OP (18:28)
[2021-10-21 19:00] VITALS: BP 126/70; PULSE 102
--- NOTE | 2021-10-21 21:29 | NUR ---
PT IN BED. HAS IVF AND CARDIZEM GTT INFUSING TO RT WRIST IV SITE, NO REDNESS OR SWELLING. TAKES HS MEDS CRUSHED IN APPLESAUCE PER HER REQUEST. PT HAS PUREWICK IN PLACE URINE YELLOW. IS ALERT, ORIENTED X2. TELEMETRY SHOWS AFIB. SCDS ON.
[2021-10-21 23:53] VITALS: BP 145/63; PULSE 103; PULSE 84; TEMP 98.2
[2021-10-22] VITALS (10 sets, daily range): BP systolic 106–142; BP diastolic 28–90; PULSE 95–144; TEMP 97.7–98.9
[2021-10-22 00:58] LABS: HEMATOCRIT 26.8 % (37.0-47.0); HEMOGLOBIN 8.4 g/dl (12.5-16.0)
--- NOTE | 2021-10-22 04:57 | NUR ---
PT HAS BEEN NPO SINCE MIDNIGHT. IVF AND CARDIZEM GTT CONTINUE.
[2021-10-22 06:41] LABS: BASO # 0.1 K/mm3 (0.0-0.2); EOS # 0.1 K/mm3 (0.0-0.7); EOS % 0.9 % (0.0-4.0); GRAN # 5.7 K/mm3 (1.4-6.5); GRAN % 61.1 % (42.2-75.2); LYMPH # 2.4 K/mm3 (1.2-3.4); LYMPH % 25.4 % (20.0-51.0); MEAN CELL VOLUME 78 fl (80.0-100.0); MEAN CORPUSCULAR HGB CONC 31 g/dl (33.0-37.0); MONO % 10.3 % (1.7-9.3); RED BLOOD COUNT 3.54 M/mm3 (4.10-5.30); REDCELL DISTRIBUTION WIDTH-CV 17.1 % (11.5-14.5)
[2021-10-22 06:47] LABS: HEMATOCRIT 27.7 % (37.0-47.0); HEMOGLOBIN 8.6 g/dl (12.5-16.0); MEAN CORPUSCULAR HEMOGLOBIN 24 pg (27-31)
[2021-10-22 06:49] LABS: PLATELET COUNT 336 K/mm3 (130-400)
[2021-10-22 06:54] LABS: CALCIUM 8.5 mg/dL (8.4-10.2); CREATININE, serum 1.02 mg/dL (0.57-1.11); MAGNESIUM 2.1 mg/dL (1.6-2.6); POTASSIUM 3.4 mmol/L (3.5-4.5)
--- NOTE | 2021-10-22 09:50 | NUR ---
Initial visit attempt; Patient resting, Cricket Coach introduced herself to Mary Ann's daughter and left a card for Mary Ann offering God's blessings and information regarding the availability of Spiritual Care at [facility].
[2021-10-22] MEDS ORDERED: REFRESH OPTIVE10 M2 OP (11:26)
--- NOTE | 2021-10-22 11:43 | NUR ---
harness worker met with patient to complete intake and discuss discharge plan. Patient resides at [facility]. She reports that she receives help with her ADL's from the care staff and she utilizes a walker to assist with ambulation. Patient does not utilize oxygen at home. PCP is Dr. Guerrero Shaikh and the skilled nursing manages her medications. Patient does have a DPOA-HC established listing her two daughters Inessa ([phone]) and Nancy ([phone]). SW requested for a PT/OT consult on the patient to determine if she is needing to return to the [facility] or if she can going back to her LTC apartment. Discharge plan: [facility] LTC vs. SNF
[2021-10-22] MEDS ORDERED: VOLTAREN GEL 1%1 TU TP (12:00)
--- NOTE | 2021-10-22 13:00 | NUR ---
PATIENT ALERT TO SELF. PATIENT DENIES PAIN, DOESN'T APPEAR IN PAIN. ASSESSMENT PERFORMED. AM MEDS ADMINISTERED. PATIENT HAS NS RUNNING AT 100/HOUR AND CARDIZEM DRIP AT 5ML/HOUR. PUREWICK IN PLACE TO LIS. PATIENT NPO FOR EGD. CALL LIGHT WITHIN REACH.
--- NOTE | 2021-10-22 21:15 | NUR ---
Pt. sitting up in bed. Pt. is alert and confused. Shift assessment complete. IV to rt. hand patent, IV fluids infusing per orders. Pt. has some excoriation to groin and bottom, New order for powder. Pt. denies further needs, call light within reach.
[2021-10-23] VITALS (7 sets, daily range): BP systolic 109–126; BP diastolic 51–74; PULSE 72–118; TEMP 97.8–98.7
[2021-10-23 06:24] LABS: BASO # 0.1 K/mm3 (0.0-0.2); BASO % 0.7 % (0.0-2.0); EOS # 0.3 K/mm3 (0.0-0.7); EOS % 3.5 % (0.0-4.0); GRAN # 5.9 K/mm3 (1.4-6.5); GRAN % 71.7 % (42.2-75.2); LYMPH # 1.4 K/mm3 (1.2-3.4); MEAN CELL VOLUME 82 fl (80.0-100.0); MEAN CORPUSCULAR HGB CONC 30 g/dl (33.0-37.0); MEAN PLATELET VOLUME 9.5 fl (7.4-10.4); MONO # 0.5 K/mm3 (0.1-0.6); MONO % 6.6 % (1.7-9.3); PLATELET COUNT 296 K/mm3 (130-400); RED BLOOD COUNT 3.11 M/mm3 (4.10-5.30); REDCELL DISTRIBUTION WIDTH-CV 17.7 % (11.5-14.5)
[2021-10-23 06:28] LABS: HEMATOCRIT 25.5 % (37.0-47.0); HEMOGLOBIN 7.6 g/dl (12.5-16.0); MEAN CORPUSCULAR HEMOGLOBIN 24 pg (27-31)
[2021-10-23 06:49] LABS: CALCIUM 8.3 mg/dL (8.4-10.2); CREATININE, serum 0.79 mg/dL (0.57-1.11); POTASSIUM 3.3 mmol/L (3.5-4.5)
--- NOTE | 2021-10-23 10:13 | NUR ---
Patient thanked for following up after leaving a card yesterday. Polishing Machine Operator Helper offered Mary Ann Arce's blessings.
--- NOTE | 2021-10-23 19:30 | NUR ---
PATIENT IN BED ON ROOM ENTRY. ALERT BUT CONFUSED DURING CONVERSATION. HS MEDS GIVEN ONE AT A TIME WITH WATER. DENIES PAIN. DAUGHTER AT BEDSIDE. CALL LIGHT IN REACH.
[2021-10-24] VITALS (7 sets, daily range): BP systolic 119–147; BP diastolic 59–78; PULSE 81–106; TEMP 98.2–100.7
[2021-10-24 06:33] LABS: BASO # 0.1 K/mm3 (0.0-0.2); BASO % 0.6 % (0.0-2.0); EOS # 0.3 K/mm3 (0.0-0.7); EOS % 3.4 % (0.0-4.0); GRAN # 5.4 K/mm3 (1.4-6.5); GRAN % 69.1 % (42.2-75.2); LYMPH # 1.3 K/mm3 (1.2-3.4); LYMPH % 17.3 % (20.0-51.0); MEAN CELL VOLUME 80 fl (80.0-100.0); MEAN CORPUSCULAR HGB CONC 31 g/dl (33.0-37.0); MEAN PLATELET VOLUME 9.8 fl (7.4-10.4); MONO # 0.7 K/mm3 (0.1-0.6); MONO % 9.3 % (1.7-9.3); PLATELET COUNT 290 K/mm3 (130-400); RED BLOOD COUNT 2.79 M/mm3 (4.10-5.30); REDCELL DISTRIBUTION WIDTH-CV 17.3 % (11.5-14.5)
[2021-10-24 06:45] LABS: HEMATOCRIT 22.4 % (37.0-47.0); HEMOGLOBIN 6.9 g/dl (12.5-16.0); MEAN CORPUSCULAR HEMOGLOBIN 25 pg (27-31)
[2021-10-24 06:54] LABS: CALCIUM 8.3 mg/dL (8.4-10.2); CREATININE, serum 0.78 mg/dL (0.57-1.11); MAGNESIUM 1.9 mg/dL (1.6-2.6); POTASSIUM 3.5 mmol/L (3.5-4.5)
--- NOTE | 2021-10-24 08:00 | NUR ---
Pt lying down in bed. Shift assessment completed. Pt was incontinent and care was provided. Sheets and external catheter was changed. Pt is alert but confused. Stated her right hand is aching and radiating to her arm. Right forearm INT CDI, no redness or edema. Left hand electrocardiograph repairer was weaker than right hand. 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 Fall precautions remain in place. Call light within reach.
--- NOTE | 2021-10-24 14:33 | NUR ---
Nut Steamer faxed clinical updates to [facility].
[2021-10-24 14:36] LABS: HEMATOCRIT 23.1 % (37.0-47.0); HEMOGLOBIN 7.2 g/dl (12.5-16.0)
--- NOTE | 2021-10-24 17:25 | NUR ---
Pt resting in bed. Denies any concerns or needs. VSS. Right antecubital INT CDI, no redness or edema. Pt remains in clear liquid diet, and should start NPO at midnight per doctor orders for GI procedure. Fall precautions remain in place. Call light within reach.
--- NOTE | 2021-10-24 19:30 | NUR ---
RECEIVED CHANGE OF SHIFT REPORT FROM DAY SHIFT RN. FAMILY AT BEDSIDE, PATIENT FINISHING UP ON BOWEL PREP FOR COLONOSCOPY SCHEDULED FOR TOMORROW. INT IN PLACE TO RAC. PURE WICK IN PLACE/DRAINING URINE.
[2021-10-25] VITALS (18 sets, daily range): BP systolic 117–164; BP diastolic 60–93; PULSE 92–128; TEMP 97.9–101.4
--- NOTE | 2021-10-25 00:27 | NUR ---
PATIENT ON AND OFF BEDPAN MULTIPLE TIMES SO FAR THIS SHIFT WITH NO STOOL PASSED. PURE WICK IN PLACE/DRAINING URINE. TYLENOL GIVEN FOR TEMP, SEE MAR. MADE NPO AFTER MN PER D.O.
[2021-10-25 07:00] LABS: BASO % 0.5 % (0.0-2.0); EOS # 0.1 K/mm3 (0.0-0.7); EOS % 0.6 % (0.0-4.0); GRAN % 72.2 % (42.2-75.2); LYMPH # 1.1 K/mm3 (1.2-3.4); LYMPH % 12.9 % (20.0-51.0); MEAN CELL VOLUME 81 fl (80.0-100.0); MEAN CORPUSCULAR HGB CONC 31 g/dl (33.0-37.0); MEAN PLATELET VOLUME 10.1 fl (7.4-10.4); MONO # 1.1 K/mm3 (0.1-0.6); MONO % 13.3 % (1.7-9.3); PLATELET COUNT 284 K/mm3 (130-400); RED BLOOD COUNT 2.81 M/mm3 (4.10-5.30); REDCELL DISTRIBUTION WIDTH-CV 17.6 % (11.5-14.5)
[2021-10-25 07:01] LABS: HEMATOCRIT 22.8 % (37.0-47.0); MEAN CORPUSCULAR HEMOGLOBIN 25 pg (27-31)
[2021-10-25 07:20] LABS: CALCIUM 8.4 mg/dL (8.4-10.2); CREATININE, serum 0.76 mg/dL (0.57-1.11); POTASSIUM 3.5 mmol/L (3.5-4.5)
--- NOTE | 2021-10-25 09:10 | NUR ---
PT A&OX2 RESTING IN BED WITH DAUGHTER AT BEDSIDE. DAUGHTER SIGNED CONSENT FOR COLONOSCOPY. AM MEDS GIVEN AND ASSESSMENT COMPLETED. SCDS TO BLE. VS STABLE AND TELE IN PLACE. PUREWICK TO SUCTION WITH TEA COLORED URINE. PT DENIES PAIN. 02 NC AT 2L. NO OTHER NEEDS AT THIS TIME. CALL LIGHT WITHIN REACH.
[2021-10-25] MEDS ORDERED: PROTONIX 40MG T40 MG PO (09:11)
--- NOTE | 2021-10-25 09:47 | NUR ---
IN W PT. ORDERED A UNIT OF BLOOD DUE TO LOW HBG AND O2 LEVELS. TITRATED 02 TO 1L TO SEE HOW PT DOES.
--- NOTE | 2021-10-25 12:03 | NUR ---
BLOOD TRANSFUSION STARTED
--- NOTE | 2021-10-25 12:28 | NUR ---
PT TOLERATING TRANSFUSION AND IT WAS INCREASED.
--- NOTE | 2021-10-25 13:13 | NUR ---
TATYANA collaborated with PT/OT and [facility]. Per Caroline at [facility], the patient was able to ambulate with a walker and contact guard assist. She did need help with all of her OT needs due to weakness in her hands. After conversations with our team and the patient's living facility, it was decided that the recommendation be for the patient to return back skilled. Caroline with [facility] notified and clinical updates faxed.
--- NOTE | 2021-10-25 19:05 | NUR ---
PATIENT RESTING IN BED WITH DAUGHTER AT BEDSIDE. DAUGHTER EXPRESSES CONCERN THAT PATIENT CONTINUES TO COMPLAIN OF R WRIST PAIN AND THAT THERE IS SLIGHTLY MORE SWELLING TO R HAND/WRIST.
--- NOTE | 2021-10-25 19:13 | NUR ---
RECEIVED CHANGE OF SHIFT REPORT FROM DAY SHIFT RN.
[2021-10-25 19:15] LABS: HEMATOCRIT 27.4 % (37.0-47.0); HEMOGLOBIN 8.5 g/dl (12.5-16.0)
--- NOTE | 2021-10-25 20:50 | NUR ---
INFORMED PROVIDER OF TEMP, PATIENT CONTINUED C/O R WRIST PAIN AND DAUGHTER'S VOICED CONCERN THAT SWELLING TO R WRIST AREA HAS INCREASED. RUE HOT TO TOUCH WITH NO REDNESS OBSERVED, NO INDURATION OBSERVED. ORDERS ENTERED BY PROVIDER, DAUGHTER INFORMED OF PROVIDER'S REC/ORDERS OF ICE TO AREA OF COMPLAINT AND KEEPING RUE ELEVATED AND GET UA PER ST CATH TO SEND TO LAB.
[2021-10-25 21:04] LABS: BASO % 0.2 % (0.0-2.0); EOS % 0.2 % (0.0-4.0); GRAN # 7.8 K/mm3 (1.4-6.5); GRAN % 78.8 % (42.2-75.2); LYMPH # 0.8 K/mm3 (1.2-3.4); MEAN CELL VOLUME 81 fl (80.0-100.0); MEAN CORPUSCULAR HGB CONC 31 g/dl (33.0-37.0); MEAN PLATELET VOLUME 9.7 fl (7.4-10.4); MONO # 1.2 K/mm3 (0.1-0.6); MONO % 12.3 % (1.7-9.3); PLATELET COUNT 292 K/mm3 (130-400); RED BLOOD COUNT 3.39 M/mm3 (4.10-5.30); REDCELL DISTRIBUTION WIDTH-CV 17.5 % (11.5-14.5)
[2021-10-25 21:08] LABS: HEMATOCRIT 27.3 % (37.0-47.0); HEMOGLOBIN 8.4 g/dl (12.5-16.0); MEAN CORPUSCULAR HEMOGLOBIN 25 pg (27-31)
[2021-10-25 23:07] LABS: COLLECTION METHOD CLEAN CATCH
[2021-10-25 23:31] LABS: MUCOUS Present (NOT PRESENT); PH 5 (5-8); SQUAMOUS EPITHELIAL 0-2 /hpf (0-10); URINE APPEARANCE Cloudy (CLEAR/HAZY); URINE BACTERIA Moderate /hpf (NONE SEEN); URINE BLOOD Negative (NEGATIVE); URINE COLOR Amber (YELLOW); URINE GLUCOSE 3+ (NEGATIVE); URINE KETONE Negative (NEGATIVE); URINE NITRATE Negative (NEGATIVE); URINE PROTEIN(semi-quant) 2+ (NEGATIVE); URINE UROBILINOGEN Negative (NEGATIVE)
[2021-10-26 03:53] VITALS: BP 145/63; PULSE 112; TEMP 100.6
[2021-10-26 07:13] VITALS: BP 139/75; PULSE 109; TEMP 98.9
--- NOTE | 2021-10-26 07:42 | NUR ---
CHANGE OF SHIFT REPORT GIVEN TO DAY SHIFT RNRACHAEL.
--- NOTE | 2021-10-26 09:30 | NUR ---
Pt doing okay this morning. Breakfast should be arriving soon. Pts daughter is at bedside. Pt has less complaints of her right wrist hurting, but blacking wheel tender. Repositioning pt every 2 hours, heels floated and placed pillow at foot of bed to help with foot drop. Pt using purewick for output
--- NOTE | 2021-10-26 11:08 | NUR ---
Ilia Alvarenga of [facility] contacted this Network Field Engineer with inquiry re: patient status and readiness to return to their SNF placement. Network Field Engineer contacted patient RN Giulia, who informs patient does not plan to discharge today, but possibly tomorrow. Clinical updates faxed to [facility] and Ilia armenta.
[2021-10-26 11:54] VITALS: BP 140/76; PULSE 110; TEMP 100
--- NOTE | 2021-10-26 13:00 | NUR ---
Pt did get bed bath this morning. She is also tolerated AHA diet. Daughter fed her breafkast and pt did have coughing episode with eggs. Continuing to turn pt
[2021-10-26 16:19] VITALS: BP 135/71; PULSE 102; TEMP 99.6
--- NOTE | 2021-10-26 18:11 | NUR ---
Pt slept some this afternoon. Still using purewick, minimal complaints. Eating okay
[2021-10-26 19:13] VITALS: BP 143/77; PULSE 100; TEMP 98.3
--- NOTE | 2021-10-26 20:00 | NUR ---
PIV TO RA NOTED TO BE INFILTRATED. IVF STOPPED, IV D/CD WITH CATHETER TIP INTACT. WILL ASSESS FOR NEW PIV. PT REPORTS NO NEEDS. WILL CONTINUE TO MONITOR.
[2021-10-27] VITALS (7 sets, daily range): BP systolic 123–146; BP diastolic 51–90; PULSE 92–113; TEMP 98–99.4
[2021-10-27 07:51] LABS: BASO # 0.1 K/mm3 (0.0-0.2); BASO % 0.7 % (0.0-2.0); EOS # 0.3 K/mm3 (0.0-0.7); GRAN # 6.3 K/mm3 (1.4-6.5); GRAN % 76.4 % (42.2-75.2); LYMPH # 0.9 K/mm3 (1.2-3.4); LYMPH % 10.4 % (20.0-51.0); MEAN CELL VOLUME 81 fl (80.0-100.0); MEAN CORPUSCULAR HGB CONC 31 g/dl (33.0-37.0); MEAN PLATELET VOLUME 10.4 fl (7.4-10.4); MONO # 0.8 K/mm3 (0.1-0.6); PLATELET COUNT 292 K/mm3 (130-400); REDCELL DISTRIBUTION WIDTH-CV 17.6 % (11.5-14.5)
[2021-10-27 07:56] LABS: HEMATOCRIT 26.6 % (37.0-47.0); HEMOGLOBIN 8.3 g/dl (12.5-16.0); MEAN CORPUSCULAR HEMOGLOBIN 25 pg (27-31)
--- NOTE | 2021-10-27 08:00 | NUR ---
Pt doing okay this morning. She did have her eyes closed initially when entering the room, but did wake easily. Pt reports doing okay. Asked for a drink of water and for me to turn up the TV. Morning medications given without difficulty. Breakfast has been ordered, awaiting its arrival. Call light within reach, will continue to monitor
[2021-10-27 08:08] LABS: CALCIUM 8.7 mg/dL (8.4-10.2); CREATININE, serum 0.73 mg/dL (0.57-1.11); POTASSIUM 3.3 mmol/L (3.5-4.5)
--- NOTE | 2021-10-27 12:48 | NUR ---
SW informed that patient will dc to facility ([facility]) to tomorrow. TATYANA will continue to follow.
--- NOTE | 2021-10-27 13:00 | NUR ---
Pt slept some this morning, but is more awake and alert than she was yesterday. Pt has been eating about half of her meals and tolerating liquids well. Pt continues to use purewick and gets repositioned frequently
[2021-10-28 04:32] VITALS: BP 147/75; PULSE 102; TEMP 99.4
[2021-10-28 06:23] LABS: BASO # 0.1 K/mm3 (0.0-0.2); BASO % 0.7 % (0.0-2.0); EOS # 0.3 K/mm3 (0.0-0.7); EOS % 3.9 % (0.0-4.0); GRAN # 5.9 K/mm3 (1.4-6.5); GRAN % 72.5 % (42.2-75.2); LYMPH % 12.5 % (20.0-51.0); MEAN CELL VOLUME 80 fl (80.0-100.0); MEAN CORPUSCULAR HGB CONC 31 g/dl (33.0-37.0); MEAN PLATELET VOLUME 9.8 fl (7.4-10.4); MONO # 0.8 K/mm3 (0.1-0.6); MONO % 9.9 % (1.7-9.3); PLATELET COUNT 328 K/mm3 (130-400); RED BLOOD COUNT 3.17 M/mm3 (4.10-5.30); REDCELL DISTRIBUTION WIDTH-CV 17.6 % (11.5-14.5)
[2021-10-28 06:30] LABS: HEMATOCRIT 25.4 % (37.0-47.0); HEMOGLOBIN 7.9 g/dl (12.5-16.0); MEAN CORPUSCULAR HEMOGLOBIN 25 pg (27-31)
--- NOTE | 2021-10-28 06:32 | NUR ---
pt on 1L O2 per NC, turning q2 hrs, purewick in place for incontinence. tylenol given this am for temp 99.4, no c/o pain or discomfort.
[2021-10-28 06:38] LABS: CALCIUM 8.4 mg/dL (8.4-10.2); CREATININE, serum 0.76 mg/dL (0.57-1.11); POTASSIUM 3.2 mmol/L (3.5-4.5)
[2021-10-28 07:49] VITALS: BP 141/79; PULSE 106; TEMP 98.3
[2021-10-28] MEDS ORDERED: AMOXICILLIN 8751 TAB PO (08:58)
[2021-10-28] MEDS ORDERED: NATURAL IRON65 MG PO (08:59)
[2021-10-28] MEDS ORDERED: ULTRAM 50MG TAB50 MG PO (09:09)
--- NOTE | 2021-10-28 10:58 | NUR ---
PATIENT ALERT TO SELF. PATIENT DOES NOT APPEAR TO BE IN PAIN. PUREWICK IN PLACE. [facility] PROVIDED. IV TO LEFT UA FLUSHES WELL. ASSESSMENT PERFORMED. AM MEDS ADMINISTERED. PATIENT SAT UP IN BED AND IS EATING BREAKFAST. PATIENT IN BED WITH CALL LIGHT NEAR.
[2021-10-28 12:00] VITALS: BP 125/68; PULSE 87; TEMP 98.4
--- NOTE | 2021-10-28 14:26 | NUR ---
The clinical team is ready to discharge the patient today. TATYANA notified and faxed updates to Caroline at [facility]. Caroline reports that they are good to accept the patient today. TATYANA met with the patient and her daughter, Nancy, to update. TATYANA presented and read the IM form outloud to Nancy. Nancy verbalized understanding and agreement to discharge today. She signed the form and TATYANA provided her with a copy. The patient is to discharge today, 10/28, back to [facility] for a skilled stay. Transportation was scheduled around 1445/1500, via [facility]. TATYANA informed the patient's RN and her daughter of the transport time. No additional needs at this time.
--- NOTE | 2021-10-28 15:06 | NUR ---
REPORT CALLED TO RYAN ELAINE AT [facility] TO [facility]. IV DC'D FROM LEFT UPPER ARM. PACKET GIVEN TO TRANSPORTER. PATIENT ESCORTED OUT WITH DAUGHTER BY HER SIDE.
== END 2021-10-28 15:07 | DRG 813 ==
LOC: COL.ER 13:25 → SURG 14:44
PROVIDERS: Emergency Medicine; Physician Assistant; Student in an Organized Health Care Education/Training Program; Surgery; ADMIT Internal Medicine
PROC: 0DB68ZX Excision of Stomach, Via Natural or Artificial Opening Endoscopic, Diagnostic (ICD-10-PCS; 2021-10-22)
PROC: 0DJD8ZZ Inspection of Lower Intestinal Tract, Via Natural or Artificial Opening Endoscopic (ICD-10-PCS; principal; 2021-10-25 12:45)
DX: D68.32 Hemorrhagic disorder due to extrinsic circulating anticoagulants (principal); K25.4 Chronic or unspecified gastric ulcer with hemorrhage; I69.354 Hemiplegia and hemiparesis following cerebral infarction affecting left non-dominant side; I48.19 Other persistent atrial fibrillation; N39.0 Urinary tract infection, site not specified; E78.5 Hyperlipidemia, unspecified; I25.10 Atherosclerotic heart disease of native coronary artery without angina pectoris; F32.A Depression, unspecified; E11.9 Type 2 diabetes mellitus without complications; Z96.653 Presence of artificial knee joint, bilateral; K64.8 Other hemorrhoids; K44.9 Diaphragmatic hernia without obstruction or gangrene; K57.30 Diverticulosis of large intestine without perforation or abscess without bleeding; F41.9 Anxiety disorder, unspecified; G89.29 Other chronic pain; D64.9 Anemia, unspecified; M62.81 Muscle weakness (generalized); Z20.822 Contact with and (suspected) exposure to COVID-19; T45.515A Adverse effect of anticoagulants, initial encounter; F03.90 Unspecified dementia, unspecified severity, without behavioral disturbance, psychotic disturbance, mood disturbance, and anxiety; I08.1 Rheumatic disorders of both mitral and tricuspid valves; M79.641 Pain in right hand; Z79.82 Long term (current) use of aspirin; Z87.442 Personal history of urinary calculi; Z91.018 Allergy to other foods; Z79.01 Long term (current) use of anticoagulants; Z79.84 Long term (current) use of oral hypoglycemic drugs; Y92.89 Other specified places as the place of occurrence of the external cause; Z23 Encounter for immunization
CPT/HCPCS: C9113; J0696; J2704; J7030; J7120; P9016

== ENCOUNTER → 2021-10-21 | Outpatient (REF) | payer SELFPAY ==
[~2021-10-21] MED LIST changes: +AMARYL1 MG PO; +AMOXICILLIN 8751 TAB PO; +B-121000 MCG PO; +DULCOLAX STOOL100 MG PO; +METAMUCIL0.52 G1; +NATURAL IRON65 MG PO; +PROTONIX 40MG T40 MG PO; +REFRESH CELLUVI1 SOL OP; +REFRESH OPTIVE10 M2 OP
[2021-10-21 11:52] LABS: BASO # 0.1 K/mm3 (0.0-0.2); BASO % 0.8 % (0.0-2.0); EOS % 0.4 % (0.0-4.0); GRAN % 78.9 % (42.2-75.2); HEMATOCRIT 35.1 % (37.0-47.0); HEMOGLOBIN 11.2 g/dl (12.5-16.0); LYMPH % 13.2 % (20.0-51.0); MEAN CELL VOLUME 77 fl (80.0-100.0); MEAN CORPUSCULAR HEMOGLOBIN 25 pg (27-31); MEAN CORPUSCULAR HGB CONC 32 g/dl (33.0-37.0); MONO # 0.5 K/mm3 (0.1-0.6); MONO % 6.4 % (1.7-9.3); PLATELET COUNT 424 K/mm3 (130-400); RED BLOOD COUNT 4.58 M/mm3 (4.10-5.30); REDCELL DISTRIBUTION WIDTH-CV 17.1 % (11.5-14.5)
== END ==
LOC: ZCOL.LAB 11:44
PROVIDERS: Internal Medicine
DX: Z01.89 Encounter for other specified special examinations (principal)